=== PATIENT | female | born 1945 | race Caucasian/White ===

== ENCOUNTER 2021-03-14 11:51 | Observation (INO) ==
[2021-03-14] MEDS ORDERED: *HR* FentaNYL (PF) 100 MCG/2 ML VIAL IVP PRN (12:00)
[2021-03-14] MEDS ORDERED: Famotidine 20 MG TABLET PO ONE (12:00)
[2021-03-14] MEDS ORDERED: Ondansetron 4 MG/2 ML VIAL IVP PRN (12:00)
[2021-03-14] MEDS ORDERED: Ipratropium Neb 0.5 MG NEBULIZER IH PRN (12:00)
[2021-03-14] MEDS ORDERED: *HR* Propofol 200 MG/20 ML VIAL IVP ONE (12:46)
[2021-03-14] MEDS ORDERED: *HR* FentaNYL (PF) 100 MCG/2 ML VIAL ONE ×2 (12:46→14:21)
[2021-03-14] MEDS ORDERED: Lidocaine -MPF 2% 5 ML VIAL ONE (12:47)
[2021-03-14] MEDS ORDERED: Lidocaine HCL 4 ML Topical Solution (Laryng-O-Jet Kit Sterile Pak) TP ONE (12:47)
[2021-03-14] MEDS ORDERED: *HR* Rocuronium Bromide 50 MG/5 ML VIAL ONE ×2 (12:47→15:27)
[2021-03-14] MEDS ORDERED: Ondansetron 4 MG/2 ML VIAL ONE (12:47)
[2021-03-14] MEDS ORDERED: *HR* Remifentanil 2 MG VIAL IVP ONE (12:58)
[2021-03-14] MEDS ORDERED: CeFAZolin Syr 2,000MG/20 ML 2,000 MG/20 ML SYRINGE IVPB ONE (13:08)
[2021-03-14] MEDS ORDERED: Ringers Solution, Lactated 1,000 ML IVC SCH (13:15)
[2021-03-14] MEDS ORDERED: Ipratropium/Albuterol Neb 3 ML IH ONE (13:24)
[2021-03-14] MEDS ORDERED: Polymyxin B Sulfate 500,000 UNIT, Sodium Chloride IRRigation 1,000 ML IR ONE (13:25)
[2021-03-14] MEDS ORDERED: *HR* Midazolam HCl 2 MG/2 ML VIAL ONE (13:39)
[2021-03-14] MEDS ORDERED: Bupivacaine/EPI 1:200k 0.25% 50 ML VIAL ONE (14:17)
[2021-03-14] MEDS ORDERED: *HR* HYDROMORPHONE 2 MG/ML VIAL ONE (16:56)
[2021-03-14] MEDS ORDERED: Sugammadex Sodium 200 MG/2 ML VIAL IV ONE (17:07)
[2021-03-14] MEDS ORDERED: Promethazine 6.25 MG in Water for inj. (sterile) 20 ML IVPB PRN (17:58)
[2021-03-14] MEDS: *HR* HYDROmorphone PF 0.5 MG/0.5 ML SYRINGE IVP PRN ×4 (18:02→18:23)
[2021-03-14] MEDS ORDERED: Fluticasone Propionate Nasal 50 MCG/SPRAY BOTTLE NS PRN (19:11)
[2021-03-14] MEDS ORDERED: Naloxone 0.4 MG/ML INJ IVP PRN (19:11)
[2021-03-14] MEDS ORDERED: *HR* OxyCODONE Immed Rel 5 MG TABLET PO PRN (19:11)
[2021-03-14] MEDS ORDERED: Acetaminophen 325 MG TABLET PO PRN (19:11)
[2021-03-14] MEDS ORDERED: Sennosides 8.6 MG TABLET PO PRN (19:11)
[2021-03-14] MEDS: 0.9 % Sodium Chloride 1,000 ML IVC SCH (19:35)
[2021-03-14] MEDS: Gabapentin 400 MG CAPSULE PO SCH (20:03)
[2021-03-14] MEDS: CeFAZolin 2,000 MG/120 ML BAG IVPB SCH (22:09)
[2021-03-14] MEDS: Budesonide/Formoterol 160/4.5 1 PUFF INH IH SCH (22:10)
[2021-03-14] MEDS: Ondansetron 4 MG/2 ML VIAL IVP PRN (22:43)
[2021-03-15] MEDS ORDERED: Scopolamine Patch 1.5 MG PATCH.TD72 TD ONE (00:14)
[2021-03-15] MEDS ORDERED: dexAMETHasone 4 MG TABLET PO ONE (00:19)
[2021-03-15] MEDS: *HR* HYDROcodone/Acet 5/325 mg TABLET PO PRN (01:08)
[2021-03-15] MEDS: CeFAZolin 2,000 MG/120 ML BAG IVPB SCH (05:28)
[2021-03-15] MEDS ORDERED: Haloperidol Lactate 5 MG/ML VIAL IVP ONE (07:55)
[2021-03-15] MEDS: Venlafaxine XR (24 HR) 150 MG CAP.ER.24H PO SCH ×2 (08:01→08:11)
[2021-03-15] MEDS: *HR* HYDROmorphone (PF) 1 MG/ML SYRINGE IVP PRN ×4 (08:02→22:28)
[2021-03-15] MEDS: Gabapentin 400 MG CAPSULE PO SCH ×5 (08:02→21:03)
[2021-03-15] MEDS: Budesonide/Formoterol 160/4.5 1 PUFF INH IH SCH (08:02)
[2021-03-15 11:01] LABS: Potassium 4.7 mEq/L (3.5-5.1)
[2021-03-15] MEDS: 0.9 % Sodium Chloride 1,000 ML IVC SCH (18:24)
[2021-03-15] MEDS: Ondansetron 4 MG/2 ML VIAL IVP PRN (22:34)
[2021-03-16] MEDS: Budesonide/Formoterol 160/4.5 1 PUFF INH IH SCH ×2 (01:05→10:10)
[2021-03-16] MEDS: *HR* HYDROmorphone (PF) 1 MG/ML SYRINGE IVP PRN (03:30)
[2021-03-16 06:44] VITALS: O2SAT 96
[2021-03-16] MEDS: Gabapentin 400 MG CAPSULE PO SCH (08:51)
[2021-03-16] MEDS: Venlafaxine XR (24 HR) 150 MG CAP.ER.24H PO SCH (08:52)
[2021-03-16 10:49] VITALS: BP 112/68; PULSE 86; TEMP 98
[2021-03-16] MEDS: *HR* HYDROcodone/Acet 5/325 mg TABLET PO PRN (11:09)
[2021-03-16] MEDS ORDERED: FLU Vac QV 21-22 (6Month+)/PF 0.5 ML SYRINGE IM ONE (11:41)
[2021-03-16 12:16] LABS: Basophils % 0.4 %; Eosinophils # 0.1 K/mcL (0.0-0.6); Eosinophils % 0.6 %; Hemoglobin 10.9 g/dL (11.5-15.4); Immature Granulocytes % 0.2 % (0-4); Lymphocytes # 1.5 K/mcL (0.6-4.6); Lymphocytes % 16.4 %; Mean Corpuscular HGB Conc 32.1 g/dL (31.6-35.5); Mean Platelet Volume 10.4 fL (9.4-12.4); Monocytes # 1.1 K/mcL (0.0-1.3); Monocytes % 11.4 %; Neutrophils # 6.6 K/mcL (1.6-8.9); Platelet Count 330 K/mcL (140-400); Red Cell Distribution Width 12.6 % (11.5-14.5); White Blood Count 9.3 K/mcL (4.3-11.1)
[2021-03-16 12:34] LABS: Calcium 8.8 mg/dL (8.6-10.3); Potassium 3.9 mEq/L (3.5-5.1)
== END 2021-03-16 14:30 | disposition home or self-care (01) ==
LOC: SDCAOSI 11:51 → 4WAOSI 11:51
PROVIDERS: ADMIT Student in an Organized Health Care Education/Training Program; ATTEND Student in an Organized Health Care Education/Training Program